=== PATIENT | male | born 1965 | race Caucasian/White ===

== ENCOUNTER 2017-02-18 10:46 | Emergency (ER) | payer MEDICARE ==
[2017-02-18] MEDS ORDERED: PROPARACAINE HCL OPTH 15ML BTL OPTH ONE (11:11)
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
[2017-02-18] MEDS ORDERED: GENTAMICIN SULFATE 0.3% OPTH 5 ML BTL OPTH ONE (11:44)
[2017-02-18] MEDS ORDERED: OFLOXACIN 0.3% 5 ML OPTH SOLN OPTH ONE (12:17)
--- NOTE | 2017-02-18 12:23 | Emergency Department Record ---
History of Present Illness - General Chief complaint: Eye Problem Stated complaint: POSSIBLE META RT EYE Time Seen by Provider: 02/18/17 11:10 Source: Patient Mode of Arrival: Ambulatory Limitations: No limitations - History of Present Illness chief complaint: Eye pain, Eye injury, Foreign body Onset/Timin -: Days(s) Onset Description: Gradual Location: Right eye Place: Home If Injury: Other Eye Symptoms: Foreign body sensation, Photophobia Severity: Mild Severity scale (1-10): 5 If Pain, Quality: Other Consistency: Constant Context: Other Associated Symptoms: None Treatments Prior to Arrival: None - Related Data Visual acuity (L) = 20/: 40 Visual acuity (R) = 20/: 50 With correction: No Hx Tetanus Toxoid Vaccination: Yes Year of Tetanus Vaccination: 2015 Patient Tetanus UTD (within 5 yrs): Yes Home Medications Medication Instructions Recorded Confirmed Last Taken Methadone HCl 10 mg PO BID 03/16/16 02/18/17 02/18/17 Previous Rx's Medication Instructions Recorded Hydrocodone/Acetaminophen [[place] 1 each PO Q6HR #10 tablet 02/18/17 5-325 Tablet] Allergies Allergy/AdvReac Type Severity Reaction Status Date / Time morphine AdvReac ITCHING Verified 03/16/16 15:01 Travel Screening - Travel/Exposure Within Last 30 Days Have you traveled within the last 30 days?: No - Travel/Exposure Within Last Year Have you traveled outside the [place] in the last year?: No - Additonal Travel Details Have you been exposed to anyone with a communicable illness?: No - Travel Symptoms Symptom Screening: None Review of Systems Constitutional: Reports: As per HPI. Denies: Chills, Fever, Malaise, Night sweats, Weakness, Weight change Eyes: Reports: As per HPI. Denies: Eye discharge, Eye pain, Photophobia, Vision change ENT: Reports: As per HPI. Denies: Congestion, Dental pain, Ear pain, Epistaxis , Hearing loss, Throat pain Respiratory: Reports: As per HPI. Denies: Cough, Dyspnea, Hemoptysis, Stridor, Wheezes Cardiovascular: Reports: As per HPI. Denies: Arrhythmia, Chest pain, Dyspnea on exertion, Edema, Murmurs, Orthopnea, Palpitations, Paroxysmal nocturnal dyspnea, Rheumatic Fever, Syncope Endocrine: Reports: As per HPI. Denies: Fatigue, Heat or cold intolerance, Polydipsia, Polyuria Gastrointestinal: Reports: As per HPI. Denies: Abdominal pain, Constipation, Diarrhea, Hematemesis, Hematochezia, Melena, Nausea, Vomiting Genitourinary: Reports: As per HPI. Denies: Dysuria, Frequency, Hematuria, Incontinence, Retention, Testicular pain, Testicular mass, Urgency Musculoskeletal: Reports: As per HPI. Denies: Arthralgia, Back pain, Gout, Joint swelling, Myalgia, Neck pain Skin: Reports: As per HPI. Denies: Bruising, Change in color, Change in hair/ nails, Lesions, Pruritus, Rash Neurological: Reports: As per HPI. Denies: Abnormal gait, Confusion, Headache, Numbness, Paresthesias, Seizure, Tingling, Tremors, Vertigo, Weakness Psychiatric: Reports: As per HPI. Denies: Anxiety, Auditory hallucinations, Depression, Homicidal thoughts, Suicidal thoughts, Visual hallucinations Hematological/Lymphatic: Reports: As per HPI. Denies: Anemia, Blood Clots, Easy bleeding, Easy bruising, Swollen glands Past Medical History - SOCIAL HISTORY Smoking Status: Current every day smoker Alcohol Use: None Drug Use: None - RESPIRATORY Hx Respiratory Disorders: Yes Hx COPD: Yes - CARDIOVASCULAR Hx Cardio Disorders: No - NEURO Hx Neuro Disorders: No - GI Hx GI Disorders: No - Hx Genitourinary Disorders: No - ENDOCRINE Hx Endocrine Disorders: No - MUSCULOSKELETAL Hx Musculoskeletal Disorders: Yes - PSYCH Hx Psych Problems: No - HEMATOLOGY/ONCOLOGY Hx Hematology/Oncology Disorders: Yes Comment:: hepatitis Family Medical History Any Significant Family History?: Yes Hx Cancer: Mother Hx HTN: Mother Physical Exam - General Limitations: No limitations - Eye With correction: No Course Vital Signs 02/18/17 10:49 Temperature 98.5 F Pulse Rate 76 Respiratory 18 Rate Blood Pressure 136/83 Pulse Ox 94 L - Reevaluation(s) Reevaluation #1: 02/18/17 12:19 d/w dr valdes who will see pt today at 6pm. Disposition Clinical Impression: Welders' keratitis of right eye Foreign body in eye Qualifiers: Encounter type: initial encounter Laterality: right Qualified Code(s): T15.91XA - Foreign body on external eye, part unspecified, right eye, initial encounter Disposition: Home, Self-Care Condition: (1) Good Instructions: Corneal Flash Mcpherson (ED), Eye Foreign Body (ED) Additional Instructions: follow up with opthamologist dr valdes today at 6;00 pm at [place] office [address] [facility], around the back of the building. call today. return sooner if worse. ofloxacin drops 4 times a day for 5 days. put artificial tears in eye [address] aaron cell phone is [phone] Prescriptions: Hydrocodone/Acetaminophen [[place] 5-325 Tablet] 1 each PO Q6HR #10 tablet Forms: Patient Portal Access
== END 2017-02-18 12:32 | disposition home or self-care (01) ==
LOC: ER 10:46
DX: T15.91XA Foreign body on external eye, part unspecified, right eye, initial encounter (principal); H16.131 Photokeratitis, right eye; W89.8XXA Exposure to other man-made visible and ultraviolet light, initial encounter; Y92.009 Unspecified place in unspecified non-institutional (private) residence as the place of occurrence of the external cause
CPT/HCPCS: 65205; 99283; 99284

== ENCOUNTER 2018-08-02 13:29 | Emergency (ER) | payer MEDICARE ==
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
[2018-08-02 14:01] LABS: BASO % 0.1 % (0-6); EOS % 0.8 % (0-6); GRAN % 77.6 % (47-80); HEMATOCRIT 42.6 % (42.0-52.0); HEMOGLOBIN 13.8 gm/dl (14.0-18.0); LYMPH % 16.5 % (16-45); MEAN CELL VOLUME 86.8 fl (81-97); MEAN CORPUSCULAR HEMOGLOBIN 28.1 pg (27-33); MEAN CORPUSCULAR HGB CONC 32.4 g/dl (32-36); MEAN PLATELET VOLUME 9.1 fl (7.4-10.4); PLATELET COUNT 239 K/uL (130-400); RED BLOOD COUNT 4.91 M/uL (4.40-5.70); RED CELL DISTRIBUTION WIDTH 13.8 % (11.5-14.5); WHITE BLOOD COUNT W/O DIFF 12.7 K/uL (4.2-12.2)
[2018-08-02 14:11] LABS: BLOOD UREA NITROGEN 18 mg/dL (6-20)
[2018-08-02 14:12] LABS: CREATININE 0.8 mg/dL (0.7-1.2); EST GLOMERULAR FILTRATION RATE > 60 mL/min; TOTAL PROTEIN 6.9 g/dL (6.6-8.7)
[2018-08-02 14:14] LABS: GLUCOSE,RANDOM 84 mg/dL (74-109)
[2018-08-02 14:17] LABS: ALB/GLOB RATIO 1.9 (1.1-1.8); ALBUMIN 4.5 g/dL (4.0-5.0); ALKALINE PHOSPHATASE 76 U/L (40-129); ALT/SGPT 17 U/L (<41); AST/SGOT 21 U/L (10.0-50.0)
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
== END 2018-08-02 15:13 | disposition left against medical advice (07) ==
LOC: ER 13:29
DX: S32.455A Nondisplaced transverse fracture of left acetabulum, initial encounter for closed fracture (principal); W17.89XA Other fall from one level to another, initial encounter; Y92.008 Other place in unspecified non-institutional (private) residence as the place of occurrence of the external cause; J44.9 Chronic obstructive pulmonary disease, unspecified; F17.210 Nicotine dependence, cigarettes, uncomplicated
CPT/HCPCS: 72192; 80053; 85025; 99283; 99284

== ENCOUNTER 2018-09-17 14:46 | Emergency (ER) | payer MEDICARE ==
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
[2018-09-17] MEDS ORDERED: HYDROCODONE/APAP 5/325MG TABLET PO ONE (15:05)
== END 2018-09-17 16:40 | disposition home or self-care (01) ==
LOC: ER 14:46
DX: T20.19XA Burn of first degree of multiple sites of head, face, and neck, initial encounter (principal); T23.162A Burn of first degree of back of left hand, initial encounter; M79.642 Pain in left hand; J44.9 Chronic obstructive pulmonary disease, unspecified; F17.210 Nicotine dependence, cigarettes, uncomplicated; I10 Essential (primary) hypertension; X08.8XXA Exposure to other specified smoke, fire and flames, initial encounter
CPT/HCPCS: 99283